=== PATIENT | male | born 1975 | race American Indian/Alaskan Native ===

== ENCOUNTER 2021-07-12 08:36 | Emergency (ER) | payer SELFPAY ==
--- NOTE | 2021-07-12 10:38 | Emergency Department Report ---
ED General Adult HPI - General Chief complaint: High BP Stated complaint: SWOLLEN JAW Time Seen by Provider: 07/12/21 09:34 Source: patient Mode of arrival: Ambulatory Limitations: No Limitations - History of Present Illness Initial comments: 46-year-old -[place] male patient presents with complaints of elevated BP x1 week and left lower dental pain with mild facial swelling for the past 3 days. He states he went to an urgent care a week ago when he was informed his blood pressure was elevated. He denies any prior history of hypertension, however patient states he has not been to see a doctor in over 10 years. No other past medical history per patient. He also denies any fever/chills/sweats, difficulty opening his jaw, or dysphagia. He is not currently following with a dental specialist. No headache, dizziness, vision changes, chest pain, shortness of breath, numbness/tingling/weakness in his limbs, difficulty with speech/ambulation per patient. - Related Data Previous Rx's Medication Instructions Recorded Last Taken Type Clindamycin [Clindamycin CAP] 300 mg PO Q6H 10 Days #40 cap 07/12/21 Unknown Rx Ibuprofen [Motrin 800 MG tab] 800 mg PO Q8HR PRN #21 tablet 07/12/21 Unknown Rx amLODIPine 5 mg PO DAILY #30 tab 07/12/21 Unknown Rx Allergies Allergy/AdvReac Type Severity Reaction Status Date / Time No Known Allergies Allergy Verified 07/12/21 08:40 ED Review of Systems ROS: Stated complaint: SWOLLEN JAW Other details as noted in HPI Constitutional: denies: chills, fever, malaise ENT: dental pain. denies: throat pain Respiratory: denies: cough, shortness of breath Cardiovascular: denies: chest pain Gastrointestinal: denies: nausea, vomiting Neurological: denies: headache, weakness, numbness, paresthesias, confusion, abnormal gait Hematological/Lymphatic: denies: swollen glands ED Past Medical Hx - Medications Home Medications: Home Medications Medication Instructions Recorded Confirmed Last Taken Type Clindamycin [Clindamycin CAP] 300 mg PO Q6H 10 Days #40 cap 07/12/21 Unknown Rx Ibuprofen [Motrin 800 MG tab] 800 mg PO Q8HR PRN #21 tablet 07/12/21 Unknown Rx amLODIPine 5 mg PO DAILY #30 tab 07/12/21 Unknown Rx ED Physical Exam - General Limitations: No Limitations General appearance: alert, in no apparent distress - Head Head exam: Present: atraumatic, normocephalic - Eye Eye exam: Present: normal appearance, PERRL. Absent: scleral icterus - Expanded ENT Exam Expanded Mouth exam: Absent: drooling, trismus, muffled voice 1 - Dental Tenderness (Small area of redness with mild swelling noted which appears to be a developing dental abscess; no overlying facial swelling or erythema noted) Throat exam: Positive: normal inspection - Neck Neck exam: Present: normal inspection, full ROM - Respiratory Respiratory exam: Present: normal lung sounds bilaterally. Absent: respiratory distress - Cardiovascular Cardiovascular Exam: Present: regular rate, normal rhythm - Neurological Exam Neurological exam: Present: alert, oriented X3, normal gait. Absent: motor sensory deficit - Psychiatric Psychiatric exam: Present: normal affect, normal mood - Skin Skin exam: Present: warm, dry, intact, normal color. Absent: rash ED Course Vital Signs 07/12/21 07/12/21 07/12/21 08:40 09:59 13:16 Temperature 98.2 F Pulse Rate 76 74 68 Respiratory 18 18 14 Rate Blood Pressure 186/116 194/103 155/108 [Right] O2 Sat by Pulse 100 97 99 Oximetry ED Medical Decision Making - Lab Data Result diagrams: 07/12/21 11:45 07/12/21 11:45 Lab Results 07/12/21 07/12/21 Range/Units 11:45 11:45 WBC 8.2 (4.5-11.0) K/mm3 RBC 4.23 (3.65-5.03) M/mm3 Hgb 12.9 (11.8-15.2) gm/dl Hct 39.4 (35.5-45.6) % MCV 93 (84-94) fl MCH 31 (28-32) pg MCHC 33 (32-34) % RDW 13.4 (13.2-15.2) % Plt Count 182 (140-440) K/mm3 Lymph % (Auto) 29.1 (13.4-35.0) % Early % (Auto) 7.7 H (0.0-7.3) % Eos % (Auto) 2.0 (0.0-4.3) % Baso % (Auto) 0.7 (0.0-1.8) % Lymph # (Auto) 2.4 (1.2-5.4) K/mm3 Early # (Auto) 0.6 (0.0-0.8) K/mm3 Eos # (Auto) 0.2 (0.0-0.4) K/mm3 Baso # (Auto) 0.1 (0.0-0.1) K/mm3 Seg Neutrophils % 60.5 (40.0-70.0) % Seg Neutrophils # 5.0 (1.8-7.7) K/mm3 Sodium 138 (137-145) mmol/L Potassium 3.4 L (3.6-5.0) mmol/L Chloride 101.4 (98-107) mmol/L Carbon Dioxide 22 (22-30) mmol/L Anion Gap 18 mmol/L BUN 10 (9-20) mg/dL Creatinine 0.9 (0.8-1.3) mg/dL Estimated GFR > 60 ml/min BUN/Creatinine Ratio 11 % Glucose 151 H (75-100) mg/dL Calcium 8.9 (8.4-10.2) mg/dL Total Bilirubin 0.90 (0.1-1.2) mg/dL AST 18 (5-40) units/L ALT 22 (7-56) units/L Alkaline Phosphatase 71 (35-129) units/L Total Protein 7.4 (6.3-8.2) g/dL Albumin 4.3 (3.9-5) g/dL Albumin/Globulin Ratio 1.4 % - Medical Decision Making 46-year-old -[place] male patient presents with complaints of elevated BP x1 week and left lower dental pain with mild facial swelling for the past 3 days. He states he went to an urgent care a week ago when he was informed his blood pressure was elevated. He denies any prior history of hypertension, ho wever patient states he has not been to see a doctor in over 10 years. No other past medical history per patient. He also denies any fever/chills/sweats, difficulty opening his jaw, or dysphagia. He is not currently following with a dental specialist. No headache, dizziness, vision changes, chest pain, shortness of breath, numbness/tingling/weakness in his limbs, difficulty with speech/ambulation per patient. Blood pressure noted to be 186/116 upon arrival to the ED now improved to 155/108. Will treat dental infection with clindamycin and give patient follow- up for dental specialist. He is to follow-up within 2 to 3 days. Will start patient on amlodipine given separate elevated BPs. He is to follow-up with PCP within 2 to 3 days for further evaluation. Vitals are normal. No acute abnormalities noted on labs. He is neurologically intact. Patient is well- appearing stable for discharge home. Strict return precautions given in detail to patient who verbalized understanding Critical care attestation.: If time is entered above; I have spent that time in minutes in the direct care of this critically ill patient, excluding procedure time. ED Disposition Clinical Impression: Dental abscess, Hypertension Disposition: 01 HOME / SELF CARE / HOMELESS Is pt being admited?: No Condition: Stable Instructions: Dental Abscess, Amlodipine tablets, Hypertension, Adult, Hypertension (ED) Prescriptions: amLODIPine 5 mg PO DAILY #30 tab Clindamycin [Clindamycin CAP] 300 mg PO Q6H 10 Days #40 cap Ibuprofen [Motrin 800 MG tab] 800 mg PO Q8HR PRN #21 tablet PRN Reason: pain Referrals: [facility] [Provider Group] - 3-5 Days [facility] [Outside] - 3-5 Days [facility] [Outside] - 3-5 Days Forms: Work/School Release Form(ED)
[2021-07-12 12:21] LABS: Alanine Aminotransferase 22 units/L (7-56); Albumin 4.3 g/dL (3.9-5); BUN/Creatinine Ratio 11; Blood Urea Nitrogen 10 mg/dL (9-20); Calcium 8.9 mg/dL (8.4-10.2); Hemolysis Index 9
[2021-07-12 12:27] LABS: Basophils # (Auto) 0.1 K/mm3 (0.0-0.1); Basophils % (Auto) 0.7 % (0.0-1.8); Eosinophils # (Auto) 0.2 K/mm3 (0.0-0.4); Hematocrit 39.4 % (35.5-45.6); Hemoglobin 12.9 gm/dl (11.8-15.2); Lymphocytes # (Auto) 2.4 K/mm3 (1.2-5.4); Lymphocytes % (Auto) 29.1 % (13.4-35.0); Mean Corpuscular HGB Conc 33 % (32-34); Mean Corpuscular Volume 93 fl (84-94); Monocytes # (Auto) 0.6 K/mm3 (0.0-0.8); Monocytes % (Auto) 7.7 % (0.0-7.3); Platelet Count 182 K/mm3 (140-440); Red Blood Count 4.23 M/mm3 (3.65-5.03); Red Cell Distribution Width 13.4 % (13.2-15.2)
[2021-07-12 13:17] VITALS: BP 155/108
[2021-07-12] MEDS ORDERED: IBUPROFEN 800 MG TAB PO STA (13:46)
[2021-07-12] MEDS ORDERED: ACETAMINOPHEN 500 MG TAB PO STA (13:46)
== END 2021-07-12 13:51 | disposition home or self-care (01) ==
LOC: ED 08:36
DX: K04.7 Periapical abscess without sinus (principal); I10 Essential (primary) hypertension; Z79.899 Other long term (current) drug therapy
CPT/HCPCS: 36415; 80053; 85025; 99283

== ENCOUNTER 2021-08-02 08:12 | Emergency (ER) | payer SELFPAY ==
--- NOTE | 2021-08-02 10:40 | Vascular Lab Report ---
DUPLEX DOPPLER LOWER EXTREMITY VEINS, LEFT INDICATION: pain. Acute generalized left lower extremity pain TECHNIQUE: Duplex doppler imaging was performed through the veins of the left lower extremity using venous compr ession and other maneuvers. COMPARISON: No relevant prior imaging study available. FINDINGS: Left Common femoral vein: Negative. Left Superficial femoral vein: Negative. Left Popliteal vein: Negative. Left Calf veins: Negative. Additional findings: None.. IMPRESSION: 1. No sonographic evidence for DVT in the left lower extremity. Signer Name: Shahram Rojas MD Signed: 08/02/2021 10:36 AM Workstation Name: [id number]
[2021-08-02 11:16] VITALS: BP 153/101
--- NOTE | 2021-08-02 11:22 | Emergency Department Report ---
ED General Adult HPI - General Chief complaint: Extremity Problem,Nontraumatic Stated complaint: PAIN IN L LEG Time Seen by Provider: 08/02/21 08:57 Source: patient Mode of arrival: Ambulatory Limitations: No Limitations - History of Present Illness Initial comments: 46-year-old -[place] male patient presents with complaints of left leg pain x1 year, with new/worsening pain over the past few weeks. Patient describes the pain as throbbing aching and states it is in the lateral and posterior portion of his leg. He denies any history of DVT/PE/cancer, leg swelling, recent long travel/surgeries, cough, shortness of breath, or chest pain. He states he sometimes has tingling in the area. Patient also reports a chronic sebaceous cyst in the area of his pain. No recent changes in the sebaceous cyst or erythema or tenderness to touch per patient. No other past medical history per patient. - Related Data Previous Rx's Medication Instructions Recorded Last Taken Type Clindamycin [Clindamycin CAP] 300 mg PO Q6H 10 Days #40 cap 07/12/21 Unknown Rx Ibuprofen [Motrin 800 MG tab] 800 mg PO Q8HR PRN #21 tablet 07/12/21 Unknown Rx amLODIPine 5 mg PO DAILY #30 tab 07/12/21 Unknown Rx Diclofenac 1% [Diclofenac 1% 1 g TP QID PRN #1 tube 08/02/21 Unknown Rx topical gel] Naproxen 500 mg PO BID PRN #20 tablet 08/02/21 Unknown Rx Allergies Allergy/AdvReac Type Severity Reaction Status Date / Time No Known Allergies Allergy Verified 08/02/21 08:16 ED Review of Systems ROS: Stated complaint: PAIN IN L LEG Other details as noted in HPI Constitutional: denies: chills, diaphoresis, fever, malaise Respiratory: denies: cough, shortness of breath Gastrointestinal: denies: abdominal pain Musculoskeletal: denies: back pain, joint swelling Skin: denies: rash, lesions, change in color Neurological: paresthesias. denies: headache, numbness, abnormal gait ED Past Medical Hx - Medications Home Medications: Home Medications Medication Instructions Recorded Confirmed Last Taken Type Clindamycin [Clindamycin CAP] 300 mg PO Q6H 10 Days #40 cap 07/12/21 Unknown Rx Ibuprofen [Motrin 800 MG tab] 800 mg PO Q8HR PRN #21 tablet 07/12/21 Unknown Rx amLODIPine 5 mg PO DAILY #30 tab 07/12/21 Unknown Rx Diclofenac 1% [Diclofenac 1% 1 g TP QID PRN #1 tube 08/02/21 Unknown Rx topical gel] Naproxen 500 mg PO BID PRN #20 tablet 08/02/21 Unknown Rx ED Physical Exam - General Limitations: No Limitations General appearance: alert, in no apparent distress - Head Head exam: Present: atraumatic, normocephalic - Eye Eye exam: Present: normal appearance. Absent: scleral icterus - Respiratory Respiratory exam: Absent: respiratory distress - Cardiovascular Cardiovascular Exam: Present: regular rate - Extremities Exam Extremities exam: Present: other (Approximately 3 to 4 cm mobile soft nonindurated sebaceous cyst noted to the left lateral upper thigh; and some tenderness to palpation of the posterior thigh without skin changes or swelling noted; patient has full range of motion of the left hip and leg) - Back Exam Back exam: Present: full ROM. Absent: paraspinal tenderness, vertebral tenderness - Neurological Exam Neurological exam: Present: alert, oriented X3, normal gait. Absent: motor s ensory deficit - Expanded Neurological Exam Expanded Motor strength exam: RLE: 4, LLE: 4 - Psychiatric Psychiatric exam: Present: normal affect, normal mood - Skin Skin exam: Present: warm, dry, intact, normal color. Absent: rash ED Course Vital Signs 08/02/21 08:16 Temperature 98.0 F Pulse Rate 75 Respiratory 15 Rate Blood Pressure 153/101 O2 Sat by Pulse 99 Oximetry ED Medical Decision Making - Medical Decision Making 46-year-old -[place] male patient presents with complaints of left leg pain x1 year, with new/worsening pain over the past few weeks. Patient describes the pain as throbbing aching and states it is in the lateral and posterior portion of his leg. He denies any history of DVT/PE/cancer, leg swelling, recent long travel/surgeries, cough, shortness of breath, or chest pain. He states he sometimes has tingling in the area. Patient also reports a chronic sebaceous cyst in the area of his pain. No recent changes in the sebaceous cyst or erythema or tenderness to touch per patient. No other past medical history per patient. Suspect meralgia paresthetica due to impingement of a large sebaceous cyst over nerves. Recommend follow-up with dermatology or PCP for further evaluation/removal of the sebaceous cyst. Treatment with icing and topical Voltaren gel for now. Also recommend patient follows up with PCP for repeat blood pressure in 2 to 3 days. He is otherwise well-appearing, his vitals are within normal limits, he is stable for discharge home. Discussed in detail signs and symptoms that should prompt immediate return to the ED with patient verbalized understanding Critical care attestation.: If time is entered above; I have spent that time in minutes in the direct care of this critically ill patient, excluding procedure time. ED Disposition Clinical Impression: Left leg pain, Sebaceous cyst Disposition: HOME / SELF CARE / HOMELESS Is pt being admited?: No Condition: Stable Additional Instructions: Please follow-up with the primary care doctor for repeat blood pressure reading within 2 to 3 days What is meralgia paresthetica? Meralgia paresthetica is a condition that causes pain, tingling, and numbness in the outer thigh. It happens when a nerve in that area gets squeezed or compressed. Different things can cause meralgia paresthetica. They include , wearing tight belts or waistbands, leaning the thigh on something for a long time, and injury to the area. Sometimes, it can happen after surgery in the area. Meralgia paresthetica is more common in people who have diabetes or obesity, and in older people. It is not a serious condition, and it usually goes away on its own. What are the symptoms of meralgia paresthetica? The main symptoms involve the upper, outer thigh. They can include: ?Pain Pain can be burning or stinging. ?Tingling This can feel like "pins and needles" in the area. ?Numbness ?Feeling extra sensitive to touch Even light touch, like the feelings of clothing on the skin, might be unpleasant. ?Itching Symptoms usually affect only 1 of the thighs. Will I need tests? Your doctor should be able to tell if you have meralgia paresthetica by learning about your symptoms and doing a "neurological exam." In a neurological exam, the doctor checks how the brain, nerves, and muscles are working. Sometimes doctors do other tests to make sure something else is not causing your symptoms. This is more likely if you have any symptoms that are different from the ones listed above. Other tests might include: ?MRI of the spine An MRI is a type of imaging test. It creates pictures of the inside of your body. ?Nerve conduction studies ("NCS") or electromyography ("EMG") These tests check how well your nerves and muscles are working. How is meralgia paresthetica treated? Meralgia paresthetica usually goes away on its own within a few weeks or months. If your symptoms bother you, it might help to: ?Avoid wearing tight belts or clothing with a tight waistband. These things can put pressure on the nerve that runs from your lower spine to your thigh. ?Consider losing weight if you are overweight. Your doctor or nurse can talk to you about healthy ways to lose weight if this is something you want to do. ?Take pain-relieving medicines such as acetaminophen (brand name: Tylenol) or ibuprofen (sample brand names: Advil, Motrin). If your symptoms last for longer than 1 or 2 months, tell your doctor or nurse. They might suggest trying other treatments, such as pain medicines or a shot of medicine to numb the area. Sometimes surgery is recommended for people with severe symptoms, but this is rare. Prescriptions: Diclofenac 1% [Diclofenac 1% topical gel] 1 g TP QID PRN #1 tube PRN Reason: pain Naproxen 500 mg PO BID PRN #20 tablet PRN Reason: pain Referrals: PRIMARY CARE, [Primary Care Provider] - 3-5 Days
== END 2021-08-02 12:32 | disposition home or self-care (01) ==
LOC: ED 08:12
DX: L72.3 Sebaceous cyst (principal); Z79.899 Other long term (current) drug therapy
CPT/HCPCS: 99283

== ENCOUNTER 2021-08-28 10:12 | Emergency (ER) | payer SELFPAY ==
[2021-08-28 11:51] VITALS: BP 160/106
[2021-08-28] MEDS ORDERED: SODIUM CHLORIDE 0.9% 1000 ML 1,000 ML IV ONE (11:52)
--- NOTE | 2021-08-28 12:20 | Emergency Department Report ---
ED Abdominal Pain HPI - General Chief Complaint: Abdominal Pain Stated Complaint: BACK PAIN, UPSET STOMACH Time Seen by Provider: 08/28/21 11:13 Source: patient Mode of arrival: Ambulatory Limitations: No Limitations - History of Present Illness Initial Comments: 46-year-old -[place] male presents to the emergency room complaining of abdominal pain feels like his stomach is upset body aches diarrhea x2 days no nausea no vomiting no fever no chills. Patient also reports he has a lump on his left side of his back that is been there for years. Patient has a history of hypertension and states he ran out of medicine yesterday. He currently does not have a primary care provider. Denies any headache no chest pain no shortness of breath. Patient reports he is vaccinated for Covid. He states he is recently tested negative. Has been taking ibuprofen and Tylenol. He says Epson salt soaks helps with his back. 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 MD Complaint: abdominal pain Onset/Timin -: days(s) Location: LLQ, RLQ Severity scale (0 -10): 6 Quality: sharp Consistency: intermittent Improves With: rest, other (Epson salt baths for his back) Worsens With: nothing Associated Symptoms: diarrhea. denies: nausea, vomiting, fever, chills, constipation, dysuria, hematochezia - Related Data Previous Rx's Medication Instructions Recorded Last Taken Type Clindamycin [Clindamycin CAP] 300 mg PO Q6H 10 Days #40 cap 07/12/21 Unknown Rx Ibuprofen [Motrin 800 MG tab] 800 mg PO Q8HR PRN #21 tablet 07/12/21 Unknown Rx amLODIPine 5 mg PO DAILY #30 tab 07/12/21 Unknown Rx Diclofenac 1% [Diclofenac 1% 1 g TP QID PRN #1 tube 08/02/21 Unknown Rx topical gel] Naproxen 500 mg PO BID PRN #20 tablet 08/02/21 Unknown Rx Allergies Allergy/AdvReac Type Severity Reaction Status Date / Time No Known Allergies Allergy Verified 08/02/21 08:16 ED Review of Systems ROS: Stated complaint: BACK PAIN, UPSET STOMACH Other details as noted in HPI Comment: All other systems reviewed and negative ED Past Medical Hx - Medications Home Medications: Home Medications Medication Instructions Recorded Confirmed Last Taken Type Clindamycin [Clindamycin CAP] 300 mg PO Q6H 10 Days #40 cap 07/12/21 Unknown Rx Ibuprofen [Motrin 800 MG tab] 800 mg PO Q8HR PRN #21 tablet 07/12/21 Unknown Rx amLODIPine 5 mg PO DAILY #30 tab 07/12/21 Unknown Rx Diclofenac 1% [Diclofenac 1% 1 g TP QID PRN #1 tube 08/02/21 Unknown Rx topical gel] Naproxen 500 mg PO BID PRN #20 tablet 08/02/21 Unknown Rx ED Physical Exam - General Limitations: No Limitations General appearance: alert, in no apparent distress - Head Head exam: Present: atraumatic, normocephalic - Eye Eye exam: Present: normal appearance - ENT ENT exam: Present: mucous membranes moist - Neck Neck exam: Present: normal inspection, full ROM - Respiratory Respiratory exam: Present: normal lung sounds bilaterally. Absent: respiratory distress, accessory muscle use - Cardiovascular Cardiovascular Exam: Present: regular rate, normal heart sounds. Absent: normal rhythm - GI/Abdominal GI/Abdominal exam: Present: soft, tenderness, normal bowel sounds. Absent: distended - Extremities Exam Extremities exam: Present: full ROM - Back Exam Back exam: Present: full ROM. Absent: rash noted - Neurological Exam Neurological exam: Present: normal gait - Psychiatric Psychiatric exam: Present: normal affect, normal mood - Skin Skin exam: Present: warm, dry, intact, normal color. Absent: rash ED Medical Decision Making - Medical Decision Making 46-year-old -Q[place] male presents to the emergency room complaining of abdominal pain feels like his stomach is upset body aches diarrhea x2 days no nausea no vomiting no fever no chills. Patient also reports he has a lump on his left side of his back that is been there for years. Patient has a history of hypertension and states he ran out of medicine yesterday. He currently does not have a primary care provider. Denies any headache no chest pain no shortness of breath. Patient reports he is vaccinated for Covid. He states he is recently tested negative. Has been taking ibuprofen and Tylenol. He says Epson salt soaks helps with his back. 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 Critical care attestation.: If time is entered above; I have spent that time in minutes in the direct care of this critically ill patient, excluding procedure time. ED Disposition Condition: Stable Referrals: PRIMARY CARE, [Primary Care Provider] - 3-5 Days
== END 2021-08-28 12:30 | disposition left against medical advice (07) ==
LOC: ED 10:12
DX: R10.9 Unspecified abdominal pain (principal); M79.18 Myalgia, other site; R19.7 Diarrhea, unspecified; R22.2 Localized swelling, mass and lump, trunk; I10 Essential (primary) hypertension
CPT/HCPCS: 99281